=== PATIENT | male | born 1985 ===

== ENCOUNTER 2021-10-02 13:07 | Emergency (ER) | payer OTHER, MEDICAID ==
--- NOTE | 2021-10-02 14:22 | EDM.PDOC ---
ED HPI GENERAL MEDICAL PROBLEM - General Chief Complaint: Cardiovascular Problem Stated Complaint: MEDICAL [facility] Time Seen by Provider: 10/02/21 14:00 Source of Information: Reports: Patient History Limitations: Reports: No Limitations - History of Present Illness INITIAL COMMENTS - FREE TEXT/NARRATIVE: pt has been constipated and he strained alot to have a stool. He has had lower abdomanal pain. He hs a infected tooth on the rt upper gum line. He is on augmentin, Onset: Today, Sudden Duration: Hour(s): Location: Reports: Face, Abdomen Associated Symptoms: Reports: No Other Symptoms Generalized Pain Score (Numeric/FACES): 7 - Related Data Allergies Allergy/AdvReac Type Severity Reaction Status Date / Time No Known Allergies Allergy Verified 10/02/21 13:16 Home Meds: Home Meds Amoxicillin/Potassium Clav [Augmentin 875-125 Tablet] 1 tab PO BID 10/02/21 [History] Emtricitabine/Tenofovir (Tdf) [Emtricitabine-Tenofv 200-300Mg] 1 tab PO DAILY 10/02/21 [History] Gabapentin [Neurontin] 900 mg PO TID 10/02/21 [History] Ibuprofen 600 mg PO TID 10/02/21 [History] Lurasidone HCl [Latuda] 40 mg PO DAILY 10/02/21 [History] Topiramate [Trokendi Xr] 100 mg PO BID 10/02/21 [History] buPROPion [Wellbutrin SR] 150 mg PO TID 10/02/21 [History] Social & Family History - Tobacco Use Tobacco Use Status *Q: Current Every Day Tobacco User Years of Tobacco use: 20 Packs/Tins Daily: 0.5 - Recreational Drug Use Recreational Drug Use: Yes Recreational Drug Type: Reports: Marijuana/Hashish, Methamphetamine ED ROS GENERAL - Review of Systems Review Of Systems: See Below Constitutional: Reports: No Symptoms HEENT: Reports: No Symptoms, Other ( infected rt upper tooth) Respiratory: Reports: No Symptoms Cardiovascular: Reports: No Symptoms Endocrine: Reports: No Symptoms GI/Abdominal: Reports: No Symptoms : Reports: No Symptoms Musculoskeletal: Reports: No Symptoms Skin: Reports: No Symptoms ED EXAM, GENERAL - Physical Exam Exam: See Below Free Text/Narrative:: pt arrived with concern for abdomanal pain. He had a hard stool and when he passed the stool he noted bright red blood on the stool. Exam Limited By: No Limitations General Appearance: Alert, Anxious Ears: Normal TMs Nose: Normal Inspection Throat/Mouth: Normal Inspection, Other (pt has a painful tooth rt upper. He is on augmentin) Head: Atraumatic Neck: Normal Inspection Respiratory/Chest: No Respiratory Distress Cardiovascular: Regular Rate, Rhythm GI/Abdominal: Tender, Other ( slight lower abdomanal tenderness rectal exam not remarkable. pt did not have a bm for 2 day prior to passing the hard stool. ) (Male) Exam: Deferred Rectal (Males) Exam: Deferred Back Exam: Normal Inspection Extremities: Normal Inspection Neurological: Alert, Oriented, Normal Cognition Psychiatric: Normal Affect Course - Vital Signs Last Recorded V/S: Last Vital Signs Temp 36.8 C 10/02/21 13:23 Pulse 122 H 10/02/21 13:23 Resp 16 10/02/21 14:43 BP 139/90 10/02/21 14:43 Pulse Ox 97 10/02/21 14:43 - Orders/Labs/Meds Labs: Laboratory Tests 10/02/21 10/02/21 Range/Units 14:29 14:29 WBC 8.2 (4.5-11.0) K/uL RBC 5.06 (4.30-5.90) M/uL Hgb 15.1 H (12.0-15.0) g/dL Hct 45.5 (40.0-54.0) % MCV 90 (80-98) fL MCH 30 (27-31) pg MCHC 33 (32-36) % Plt Count 264 (150-400) K/uL Neut % (Auto) 62.9 (36-66) % Lymph % (Auto) 22.2 L (24-44) % Cook % (Auto) 13.5 H (2-6) % Eos % (Auto) 0.9 L (2-4) % Baso % (Auto) 0.5 (0-1) % Sodium 141 (140-148) mmol/L Potassium 4.0 (3.6-5.2) mmol/L Chloride 107 (100-108) mmol/L Carbon Dioxide 24 (21-32) mmol/L Anion Gap 10.2 (5.0-14.0) mmol/L BUN 8 (7-18) mg/dL Creatinine 1.0 (0.8-1.3) mg/dL Est Cr Clr Drug Dosing 95.48 mL/min Estimated GFR (MDRD) > 60 (>60) Glucose 153 H (74-106) mg/dL Calcium 8.8 (8.5-10.1) mg/dL Total Bilirubin 0.2 (0.2-1.0) mg/dL AST 22 (15-37) U/L ALT 46 (12-78) U/L Alkaline Phosphatase 94 (46-116) U/L Total Protein 7.1 (6.4-8.2) g/dL Albumin 3.8 (3.4-5.0) g/dL Globulin 3.3 (2.3-3.5) g/dL Albumin/Globulin Ratio 1.2 (1.2-2.2) - Re-Assessments/Exams Free Text/Narrative Re-Assessment/Exam: 10/02/21 15:12 pt had a normal wbc. his chems were good. His hg was normal. Departure - Departure Time of Disposition: 15:14 Disposition: Home, Self-Care 01 Condition: Fair Clinical Impression: Constipation, Rectal irritation Referrals: PCP,Unknown [Primary Care Provider] - Forms: ED Department Discharge Care Plan Goals: drink the bottle of mag citrate to clen out the hard stool, after that use a single dose of miralax daily. continue the augmentin for his tooth. Sepsis Event Note (ED) - Evaluation Sepsis Screening Result: No Definite Risk - Focused Exam Vital Signs: Vital Signs Temp Pulse Resp BP Pulse Ox 10/02/21 14:43 16 139/90 97 10/02/21 13:23 36.8 C 122 H 15 156/99 H 98 10/02/21 13:17 36.8 C 122 H 15 156/99 H 98
[2021-10-02] MEDS ORDERED: Acetaminophen/Codeine 300-30 MG Tab PO ONE (15:13)
[2021-10-02] MEDS ORDERED: Magnesium Citrate Solution 296 ML Bottle PO ONE (15:14)
== END 2021-10-02 15:28 | disposition home or self-care (01) ==
LOC: JP.ED 13:07
DX: K59.00 Constipation, unspecified (principal); K62.89 Other specified diseases of anus and rectum; Z72.0 Tobacco use
CPT/HCPCS: 36415; 80053; 82272; 85025; 99283; A9270